=== PATIENT | female | born 1950 | race African-American/Black ===

== ENCOUNTER 2021-03-11 09:19 | Observation (INO) ==
[2021-03-11 10:00] LABS: Basophils # 0.1 10*3/uL (0.0-0.2); Basophils % 1.8 % (0.0-0.8); Eosinophils # 0.2 10*3/uL (0.0-0.87); Eosinophils % 4.5 % (0.00-10.9); Hematocrit 37.7 VOL% (35.7-47.0); Hemoglobin 12.3 GM/DL (12.0-16.0); Immature Granulocytes % 0.3 %; Immature Granulocytes Absolute 0.01 #; Lymphocytes # 1.5 10*3/uL (1.4-4.0); Lymphocytes % 38.5 % (21.3-54.2); Mean Corpuscular HGB Conc 32.6 GM/DL (32-36); Mean Corpuscular Volume 92.2 FL (87-102); Mean Platelet Volume 12.8 FL (9.6-12.0); Monocytes % 8.6 % (1.7-12.7); Neutrophils % 46.3 % (38.7-73.9); Platelet Count 138 T/CUMM (130-400); Red Blood Count 4.09 MC/CUMM (3.8-5.5); White Blood Count 3.8 T/CUMM (4-12)
[2021-03-11 10:27] LABS: Albumin 3.4 G/DL (3.4-5.0); Atypical Lymphocytes Few; Bilirubin,Total 0.4 MG/DL (0.20-1.00); Calcium 8.9 MG/DL (8.5-10.1); Eosinophils 5 % (0-10); Hypochromasia 1+; Lymphocytes 44 % (20-55); Microcytosis 1+; Ovalocytes Slight; Potassium 3.4 MMOL/L (3.5-5.1); Segmented Neutrophils 44 % (50-85); Total Cells Counted 100; Total Protein 7.3 G/DL (6.4-8.2)
[2021-03-11] MEDS ORDERED: POTASSIUM CHLORIDE 20 MEQ TABLET PO STA (10:51)
[2021-03-11] MEDS ORDERED: BISACODYL 5 MG TABLET PO PRN (11:59)
[2021-03-11] MEDS ORDERED: DEXTROSE 50% 25 GM/50 ML VIAL IV PRN ×2 (11:59)
[2021-03-11] MEDS ORDERED: ONDANSETRON 4 MG/2 ML VIAL IV PRN (11:59)
[2021-03-11] MEDS ORDERED: GLUCAGON 1 MG VIAL IM PRN ×2 (11:59)
[2021-03-11 14:43] LABS: Bilirubin,Urine Negative (Negative); Blood, Urine Negative (Negative); Glucose,Urine (UA) Negative (Negative); Ketones,Urine Negative (Negative); Mucus,Urine Occasional /LPF (Occasional); Nitrite,Urine Negative (Negative); Protein,Urine Negative; RBC,Urine 1 /HPF (0-4); Squamous Epithelial Cell,Urine Occasional /HPF (0-10); Urine Appearance CLEAR (Clear); Urine Color Yellow (Yellow); Urine Specific Gravity 1.012 (1.001-1.035); Urine Urobilinogen < 2.0 EU/DL (0.2-1.0)
[2021-03-11] MEDS ORDERED: PYRIDOXINE 100 MG TABLET PO PRN (14:47)
[2021-03-11] MEDS ORDERED: FLUTICASONE/SALMETEROL 250-50 DISKUS 14 DOSE INH PRN (14:47)
[2021-03-11] MEDS: PANTOPRAZOLE 40 MG TABLET PO SCH ×2 (18:25→21:20)
[2021-03-11] MEDS: INSULIN LISPRO 100 UNIT/ML SUBCUT SCH ×2 (18:26→21:20)
[2021-03-11] MEDS: CHOLECALCIFEROL 1,000 UNIT TABLET PO SCH (18:26)
[2021-03-12 06:14] LABS: Basophils % 1.2 % (0.0-0.8); Eosinophils # 0.2 10*3/uL (0.0-0.87); Eosinophils % 5.3 % (0.00-10.9); Hemoglobin 11.3 GM/DL (12.0-16.0); Immature Granulocytes % 0.3 %; Immature Granulocytes Absolute 0.01 #; Lymphocytes # 1.8 10*3/uL (1.4-4.0); Lymphocytes % 52.1 % (21.3-54.2); Mean Corpuscular HGB Conc 33.2 GM/DL (32-36); Mean Corpuscular Volume 90.9 FL (87-102); Mean Platelet Volume 12.2 FL (9.6-12.0); Monocytes % 8.2 % (1.7-12.7); Neutrophils % 32.9 % (38.7-73.9); Platelet Count 117 T/CUMM (130-400); Red Blood Count 3.74 MC/CUMM (3.8-5.5); Red Cell Distribution Width 13.6 % (9.3-17.3); White Blood Count 3.4 T/CUMM (4-12)
[2021-03-12 06:46] LABS: Calcium 8.3 MG/DL (8.5-10.1); Osmolality,Calculated 274.7 MOS/KG (273-304); Potassium 4.2 MMOL/L (3.5-5.1)
[2021-03-12 06:51] LABS: Anisocytosis 1+; Atypical Lymphocytes Few; Eosinophils 5 % (0-10); Lymphocytes 54 % (20-55); Macrocytosis 1+; Platelet Estimate Adequate; Segmented Neutrophils 33 % (50-85); Total Cells Counted 100
[2021-03-12 07:10] LABS: Risk Ratio 1.86; Thyroid Stimulating Hormone 1.19 uIU/ml (0.358-3.74); VLDL Cholesterol 12.6 MG/DL
[2021-03-12] MEDS: INSULIN LISPRO 100 UNIT/ML SUBCUT SCH ×4 (08:30→20:24)
[2021-03-12] MEDS: TRIAMTERENE/HCTZ 75-50 MG TABLET PO SCH (08:31)
[2021-03-12] MEDS: FOLIC ACID 1 MG TABLET PO SCH (08:31)
[2021-03-12] MEDS: metFORMIN 500 MG TABLET PO SCH (08:31)
[2021-03-12] MEDS: amLODIPine 2.5 MG TABLET PO SCH (08:31)
[2021-03-12] MEDS: MELOXICAM 7.5 MG TABLET PO SCH (08:31)
[2021-03-12] MEDS: CYANOCOBALAMIN 500 MCG TABLET PO SCH (08:32)
[2021-03-12] MEDS: PANTOPRAZOLE 40 MG TABLET PO SCH ×2 (08:32→20:24)
[2021-03-12] MEDS: LINACLOTIDE 145 MCG CAPSULE PO SCH (08:32)
[2021-03-12 12:42] LABS: Cyclic Citrull Peptide Interp Negative
[2021-03-12] MEDS: CHOLECALCIFEROL 1,000 UNIT TABLET PO SCH (15:20)
[2021-03-13 05:14] LABS: Basophils % 0.8 % (0.0-0.8); Eosinophils # 0.2 10*3/uL (0.0-0.87); Eosinophils % 6.1 % (0.00-10.9); Hematocrit 33.4 VOL% (35.7-47.0); Lymphocytes # 1.8 10*3/uL (1.4-4.0); Lymphocytes % 47.4 % (21.3-54.2); Mean Corpuscular HGB Conc 32.9 GM/DL (32-36); Mean Corpuscular Volume 92.3 FL (87-102); Mean Platelet Volume 12.6 FL (9.6-12.0); Monocytes % 10.8 % (1.7-12.7); Neutrophils % 34.9 % (38.7-73.9); Platelet Count 119 T/CUMM (130-400); Red Blood Count 3.62 MC/CUMM (3.8-5.5); Red Cell Distribution Width 13.7 % (9.3-17.3); White Blood Count 3.8 T/CUMM (4-12)
[2021-03-13 05:36] LABS: Calcium 8.4 MG/DL (8.5-10.1); Osmolality,Calculated 277.5 MOS/KG (273-304); Potassium 3.5 MMOL/L (3.5-5.1)
[2021-03-13 07:09] LABS: Eosinophils 4 % (0-10); Lymphocytes 40 % (20-55); Platelet Estimate Normal; Segmented Neutrophils 47 % (50-85); Total Cells Counted 100
[2021-03-13] MEDS: amLODIPine 2.5 MG TABLET PO SCH (09:18)
[2021-03-13] MEDS: MELOXICAM 7.5 MG TABLET PO SCH (09:19)
[2021-03-13] MEDS: metFORMIN 500 MG TABLET PO SCH (09:19)
[2021-03-13] MEDS: CYANOCOBALAMIN 500 MCG TABLET PO SCH (09:19)
[2021-03-13] MEDS: FOLIC ACID 1 MG TABLET PO SCH (09:19)
[2021-03-13] MEDS: LINACLOTIDE 145 MCG CAPSULE PO SCH (09:20)
[2021-03-13] MEDS: TRIAMTERENE/HCTZ 75-50 MG TABLET PO SCH (09:20)
[2021-03-13] MEDS: PANTOPRAZOLE 40 MG TABLET PO SCH (09:20)
[2021-03-13] MEDS: INSULIN LISPRO 100 UNIT/ML SUBCUT SCH ×2 (09:21→12:32)
[2021-03-13 12:26] VITALS: BP 118/58
== END 2021-03-13 12:33 | disposition home or self-care (01) ==
LOC: N.ED 09:19 → N.EDINP 09:19 → SUATTDRO 11:59 → N.TELEN 15:23
PROVIDERS: ADMIT Internal Medicine; ATTEND Hospitalist